=== PATIENT | female | born 1995 | race Caucasian/White ===

== ENCOUNTER 2017-10-27 13:37 | Emergency (ER) | payer OTHER ==
[~2017-10-27] VITALS: Ht 144.8 cm; Wt 51.2 kg
[2017-10-27 13:55] VITALS: Ht 144.8 cm; Wt 51.2 kg
[2017-10-27 15:26] LABS: microscopic required? NO
[2017-10-27 16:14] LABS: urine erythrocyte NEGATIVE (NEGATIVE)
[2017-10-27 16:27] VITALS: BP 94/66
== END 2017-10-27 16:22 | disposition home or self-care (01) ==
LOC: ED 13:37
PROVIDERS: Emergency Medicine
DX: R10.32 Left lower quadrant pain (principal)
CPT/HCPCS: 87491; 87591; J1885